=== PATIENT | female | born 1955 | race African-American/Black ===

== ENCOUNTER 2019-08-28 10:04 | Inpatient (IN) | payer BC ==
[~2019-08-28] VITALS: Ht 160 cm; Wt 96.6 kg
[2019-08-28] MEDS ORDERED: MORPHINE SULFATE 4 MG/ML CPJ (NOT FOR IM USE) IV STA (11:04)
[2019-08-28] MEDS ORDERED: ONDANSETRON HCL 4MG/2ML INJ IV STA (11:04)
[2019-08-28 11:26] LABS: PROTHROMBIN TIME 10.6 sec (9.6-11.0)
[2019-08-28 11:27] LABS: CHLORIDE 101 mEq/L (98-107)
[2019-08-28 11:48] LABS: BASOPHILS % 0.5 % (0.0-2.0); EOSINOPHILS % 3.5 % (0.0-5.0); HEMATOCRIT. 45.6 % (36.0-48.0); HEMOGLOBIN. 15.4 g/dL (12.0-16.0); MEAN CORPUSCULAR HEMOGLOBIN 31.8 pg (28.0-32.0); MEAN CORPUSCULAR VOLUME 93.9 fL (81.0-99.0); MEAN PLATELET VOLUME 9.4 fl (7.4-10.4); PLATELET 210 x1000/uL (130-400); RED BLOOD CELL COUNT 4.85 mill/uL (4.2-5.4)
[2019-08-28 13:38] LABS: CLARITY URINE CLOUDY (CLEAR); COLOR URINE YELLOW (YELLOW); KETONES URINE NEGATIVE (NEGATIVE); LEUKOCYTE ESTERASE URINE TRACE (NEGATIVE); NITRITE URINE NEGATIVE (NEGATIVE); OCCULT BLOOD URINE NEGATIVE (NEGATIVE); PH URINE 5.5 (4.5-8.0); PROTEIN URINE TRACE (NEGATIVE); SPECIFIC GRAVITY URINE 1.018 (1.005-1.030); UROBILINOGEN URINE 0.2 E.U./dL (0.2-1.0)
[2019-08-28] MEDS ORDERED: KETOROLAC 30MG/ML VIAL IV ONE (14:00)
[2019-08-28 16:00] VITALS: BP 123/72
[2019-08-28 16:45] VITALS: BP 123/72
[2019-08-28] MEDS ORDERED: LOSA25TA26 MT (17:23)
[2019-08-28] MEDS ORDERED: METO25TA6 MT (17:24)
[2019-08-28] MEDS ORDERED: ACETAMINOPHEN 650MG/20.3ML UDC PO PRN (18:30)
[2019-08-28] MEDS ORDERED: ONDANSETRON HCL 4MG/2ML INJ IV PRN (18:30)
[2019-08-28] MEDS ORDERED: KETOROLAC 30MG/ML VIAL IV PRN (18:30)
[2019-08-28] MEDS ORDERED: CLONIDINE 0.1MG TABLET PO PRN (18:45)
[2019-08-28] MEDS: SODIUM CHLORIDE 0.9% 1,000 ML IV SCH (18:57)
[2019-08-28 20:40] VITALS: BP 119/65
[2019-08-29 00:33] VITALS: BP 108/58
[2019-08-29 04:00] VITALS: BP 107/52
[2019-08-29] MEDS: SODIUM CHLORIDE 0.9% 1,000 ML IV SCH (07:50)
[2019-08-29 08:00] VITALS: BP 112/64
[2019-08-29] MEDS ORDERED: LOSARTAN POTASSIUM 25 MG TABLET PO SCH (09:00)
[2019-08-29] MEDS ORDERED: METOPROLOL TARTRATE 25MG TABLET PO SCH (09:00)
== END 2019-08-29 10:12 | disposition left against medical advice (07) | DRG 445 ==
LOC: ER 10:22 → 6WST 14:28 → ENRESERV 15:43
PROVIDERS: ADMIT Family Medicine; ATTEND Family Medicine
DX: K80.20 Calculus of gallbladder without cholecystitis without obstruction (principal); J84.9 Interstitial pulmonary disease, unspecified; E66.9 Obesity, unspecified; R73.9 Hyperglycemia, unspecified; K83.8 Other specified diseases of biliary tract; R16.0 Hepatomegaly, not elsewhere classified; K57.30 Diverticulosis of large intestine without perforation or abscess without bleeding; Z53.29 Procedure and treatment not carried out because of patient's decision for other reasons; I11.9 Hypertensive heart disease without heart failure; Z68.37 Body mass index [BMI] 37.0-37.9, adult
CPT/HCPCS: 36415; 74176; 81003; 99285; J1885; J2270; J2405; J7030